=== PATIENT | female | born 1955 | race Caucasian/White ===

== ENCOUNTER → 2018-04-23 | Day surgery (SDC) | payer OTHER ==
[~2018-04-23] MED LIST: ATENOLOL50 MG PO; BIOTIN2500 MCG PO; CRESTOR10 MG PO; FENOFIBRATE145 MG PO; FENTANYL CITRATE/PF 100MCG/2 ML INJ ONE; FISH OIL 1,0001 EAC2 PO; MIDAZOLAM HCL 2 MG/2 ML VIAL ONE; PROPOFOL IV EMULSION 10 MG/ML 50 ML VIAL ONE
--- NOTE | 2018-04-23 15:34 | Operative Report ---
DATE OF PROCEDURE: April 23, 2018 REFERRING PHYSICIAN: Dr. Marily Leo. PROCEDURE PERFORMED: Colonoscopy and polypectomy with biopsies. INDICATIONS FOR COLONOSCOPY: Colorectal cancer screening. MEDICATION: Patient was done under MAC. Please see anesthesiologist's note. PROCEDURE: With the patient in the left lateral decubitus position, the flexible fiberoptic Olympus colonoscope was inserted into the rectum with ease and advanced all the way to the cecum. A minute polyp was hot biopsied from the cecum, and polypectomy site was prophylactically hemoclipped. The ascending and transverse appeared to be within normal limits. The mucosa overlying the left colon and the rectum revealed some patchy mild inflammatory changes, and random biopsies were obtained. The scope was then retroflexed into the distal rectum and small internal hemorrhoids were noted, none of which was actively bleeding. The scope was then straightened out. It was subsequently withdrawn. Patient tolerated the procedure well. IMPRESSION: 1. Cecal polyp hot biopsied, polypectomy site prophylactically hemoclipped. 2. Mild patchy left-sided colitis, biopsies obtained. 3. Internal hemorrhoids, none actively bleeding. PLAN: Follow up histology. Initiate high-fiber low-fat diet. Initiate high-fiber supplement. Start VSL#3 one p.o. daily. Patient might benefit from a followup colonoscopy in 3 to 5 years. Job#: [id number] EV cc:MARILY LEO DO
== END | disposition home or self-care (01) ==
LOC: ENDO 11:44
PROVIDERS: ATTEND Internal Medicine Gastroenterology
DX: Z12.11 Encounter for screening for malignant neoplasm of colon (principal); D12.0 Benign neoplasm of cecum; K51.50 Left sided colitis without complications; K64.8 Other hemorrhoids; I10 Essential (primary) hypertension; E78.5 Hyperlipidemia, unspecified; R00.1 Bradycardia, unspecified; Z88.8 Allergy status to other drugs, medicaments and biological substances; Z01.810 Encounter for preprocedural cardiovascular examination
CPT/HCPCS: 45380; 45384; 93005; J2250; 45378; 45385